=== PATIENT | female | born 1955 | race African-American/Black ===

== ENCOUNTER → 2017-12-14 | Outpatient (CLI) | payer BC ==
--- NOTE | 2017-12-14 16:06 | US ---
HISTORY: 12 o'clock left breast lump Bilateral digital diagnostic mammography with CAD and left breast ultrasound. Comparison: August 17, 2015 FINDINGS: Mammogram: Bilateral CC and MLO projections of the right and left breast were obtained. Scattered fi broglandular tissue is seen to be present without significant interval change. No suspicious archite ctural distortion, mass or clustered microcalcifications can be observed to suggest malignancy. No s kin thickening or nipple retraction is appreciated. No pathological lymphadenopathy can be identifi ed. Benign-appearing calcifications are noted within the right and left breast. Ultrasound: Multiple grayscale and color Doppler images were obtained in the region of interest at 12 o'clock approximately 4 cm from the nipple where there is an underlying 1 cm horizontally oriented m acro lobulated but predominately smoothly marginated and well circumscribed heterogeneous hypoechoic nodule without posterior acoustical features or definite internal vascularity for which differential considerations include an intramammary lymph node with an equivocal echogenic fatty core, fibroadenom a with fibrous bands, versus a fat lobule with surrounding fibrocystic breast parenchyma. No suspicio us cystic or solid nodules are seen to warrant biopsy at this time. IMPRESSION: Probably benign 12 o'clock left breast nodule as detailed above for which 6 month sonogr aphic follow-up is recommended. ACR CATEGORY 3 - probably benign findings; short interval follow-up suggested. Diagnostic CAD was utilized and reviewed. * 0 (ZERO) - ASSESSMENT INCOMPLETE; ADDITIONAL IMAGING IS NEEDED. * 1/1 (ONE) - NEGATIVE. * 2/II (TWO) - BENIGN FINDINGS. * 3/III (THREE) - PROBABLY BENIGN FINDING; SHORT INTERVAL FOLLOW-UP SUGGESTED. * 4/IV (FOUR) - SUSPICIOUS ABNORMALITY; BIOPSY SHOULD BE CONSIDERED. * 5/V - HIGHLY SUSPICIOUS OF MALIGNANCY; BIOPSY SHOULD BE PERFORMED. A NEGATIVE X-RAY REPORT SHOULD NOT DELAY BIOPSY IF A DOMINANT OR CLINICALLY SUSPICIOUS MASS IS PRESENT; 4 TO 8 PERCENT OF CANCERS ARE NOT IDENTIFIED BY X-RAY. A NEGA TIVE REPORT MAY REINFORCE THE CLINICAL IMPRESSION. ADENOSIS AND DENSE BREASTS MAY OBSCURE AN UNDERLY ING NEOPLASM. Reported By:
== END ==
LOC: RAD 13:59
PROVIDERS: ATTEND Nurse Practitioner Family
DX: N63.22 Unspecified lump in the left breast, upper inner quadrant (principal); N63.23 Unspecified lump in the left breast, lower outer quadrant
CPT/HCPCS: 76642; 77066